=== PATIENT | female | born 1990 | race Asian ===

== ENCOUNTER 2020-07-29 21:21 | Inpatient (IN) ==
[2020-07-29] MEDS ORDERED: Buffered Lidocaine 1% SYRIN 1 ml INTRADERM ONE ×2 (21:54→23:39)
[2020-07-29 22:14] LABS: Urine Benzodiazepine Screen None Detected (None Detect); Urine Cannabinoids Screen None Detected (None Detect); Urine Opiates Screen None Detected (None Detect)
[2020-07-29 23:27] LABS: ABS Basophils 0.1 10^3/ul (0-0.2); ABS Eosinophils 0.1 10^3/ul (0-0.6); ABS Lymphocytes 1.8 10^3/ul (1.0-4.8); ABS Monocytes 0.8 10^3/ul (0-0.8); ABS Neutrophils 5.1 10^3/ul (1.5-7.7); Eosinophil % 1.2 %; Hematocrit 35 % (35-47); Hemoglobin 12.5 g/dL (12.0-16.0); Lymphocyte % 22.9 %; Mean Corpuscular HGB Conc 35 g/dL (31-36); Mean Corpuscular Hemoglobin 31 pg (27-31); Mean Corpuscular Volume 89 fL (80-97); Mean Platelet Volume 9.7 fL (7.4-10.4); Platelet Count 172 10^3/uL (150-450); Red Cell Distribution Width 14 % (10-15); White Blood Count 7.8 10^3/uL (3.5-10.8)
[2020-07-29] MEDS ORDERED: OBEPIDURAL 250 ML EPIDURAL ONE (23:35)
[2020-07-29] MEDS ORDERED: Lactated Ringers 1000 ml BAG 1,000 ML IV ONE (23:39)
[2020-07-29 23:40] LABS: Urine Benzodiazepine Screen None Detected (None Detect); Urine Cannabinoids Screen None Detected (None Detect); Urine Opiates Screen None Detected (None Detect)
[2020-07-29] MEDS ORDERED: Lactated Ringers 1000 ml BAG 1,000 ML IV SCH (23:45)
[2020-07-30] MEDS ORDERED: Phenylephrine 40 mcg/mL 10mL (400mcg) SYRINGE IV PUSH PRN ×2 (00:23)
[2020-07-30] MEDS ORDERED: Sodium Citrate/Citric Acid LIQ 15 ML UDC PO PRN (00:23)
[2020-07-30] MEDS ORDERED: Lactated Ringers 1000 ml BAG 1,000 ML IV ONE (00:23)
[2020-07-30] MEDS ORDERED: Lactated Ringers 1000 ml BAG 1,000 ML IV SCH ×2 (01:00→04:00)
[2020-07-30] MEDS ORDERED: OBEPIDURAL 250 ML EPIDURAL SCH (01:00)
[2020-07-30 01:21] LABS: Urine Benzodiazepine Screen None Detected (None Detect); Urine Cannabinoids Screen None Detected (None Detect); Urine Opiates Screen None Detected (None Detect)
[2020-07-30 01:26] LABS: Urine Appearance Clear; Urine Bilirubin Negative (Negative); Urine Blood Negative (Negative); Urine Color Colorless; Urine Glucose Negative (Negative); Urine Ketones Negative (Negative); Urine Nitrite Negative (Negative); Urine Protein Negative (Negative); Urine Specific Gravity 1.003 (1.002-1.030); Urine Urobilinogen Negative (Negative)
[2020-07-30] MEDS ORDERED: Oxytocin in LR 20 UNITS/1,000 ML BAG IVPB ONE (02:00)
[2020-07-30] MEDS ORDERED: Dibucaine 1% OINT 28.35 GM TUBE PR PRN (03:41)
[2020-07-30] MEDS ORDERED: Glycerin ADULT 2.4 gm SUPP PR PRN (03:41)
[2020-07-30] MEDS ORDERED: Witch Hazel PAD JAR TOPICAL PRN (03:41)
[2020-07-30] MEDS ORDERED: Oxytocin in LR 20 UNITS/1,000 ML BAG IVPB SCH (04:00)
[2020-07-30] MEDS ORDERED: Ammonia Inhalant 1 EA AMP ONE (04:29)
[2020-07-30] MEDS ORDERED: Lidocaine 1% VIAL 10 MG/ML VIAL ONE (05:39)
[2020-07-30] MEDS ORDERED: Varicella Virus Vaccine Live 0.5 ML VIAL SUBCUT ONE (09:00)
[2020-07-30 20:42] VITALS: BP 96/56
[2020-07-31 06:56] LABS: ABS Eosinophils 0.2 10^3/ul (0-0.6); ABS Lymphocytes 1.8 10^3/ul (1.0-4.8); ABS Monocytes 0.7 10^3/ul (0-0.8); ABS Neutrophils 9.1 10^3/ul (1.5-7.7); Eosinophil % 1.7 %; Hematocrit 28 % (35-47); Hemoglobin 9.8 g/dL (12.0-16.0); Lymphocyte % 15.4 %; Mean Corpuscular HGB Conc 35 g/dL (31-36); Mean Corpuscular Hemoglobin 31 pg (27-31); Mean Corpuscular Volume 89 fL (80-97); Mean Platelet Volume 9.5 fL (7.4-10.4); Platelet Count 146 10^3/uL (150-450); Red Blood Count 3.17 10^6 /uL (3.70-4.87); Red Cell Distribution Width 14 % (10-15); White Blood Count 11.8 10^3/uL (3.5-10.8)
[2020-07-31] MEDS ORDERED: Varicella Virus Vaccine Live 0.5 ML VIAL SUBCUT ONE (15:30)
== END 2020-07-31 18:48 | disposition home or self-care (01) ==
LOC: MCHOBOUT 21:21 → MCHOB 23:23
PROVIDERS: ADMIT Midwife; ATTEND Midwife